=== PATIENT | male | born 1965 | race Caucasian/White ===

== ENCOUNTER 2016-12-24 01:07 | Emergency (ER) | payer SELFPAY ==
[~2016-12-24] VITALS: Ht 175.2 cm; Wt 81.6 kg
--- NOTE | ~2016-12-24 | EKG ---
[place], [place] ELECTROCARDIOGRAM REPORT NAME: MIGDALIA RAHMAN UNIT #: [id number] ROOM: DOCTOR: KUMAR BURNETT MD BIRTHDATE: [birth year] DOS: 12/24/2016 TIME: 0141 hours. IMPRESSION: 1. Sinus rhythm at 94 beats per minute. 2. Incomplete right bundle branch block. 3. An abnormal ECG. 4. No previous tracing is available for comparison. KUMAR BURNETT MD CM:EKGRPT:ELECTROCARDIOGRAM REPORT [id number] KUMAR BURNETT MD
[~2016-12-24 01:07] MED LIST: DARVOCET N 1001 TAB PO; DAYPRO600 M1 PO; DILANTIN100 MG PO; MEDROL DOSEPAK4 MG PO; MOTRIN800 MG PO; NKHM; ROBAXIN750 MG PO; TRAMADOL HCL50 MG PO; VICODIN 5/500 505 MG PO
[2016-12-24 01:51] LABS: BASO # 0.1 10*3/uL (0.0-0.1); BASO % 0.5 % (0.0-1.0); EOS # 0.8 10*3/uL (0.0-0.4); EOS % 5.8 % (1.0-4.0); HEMATOCRIT 31.6 % (42.0-52.0); HEMOGLOBIN 9.9 g/dl (14.0-18.0); LYMPH # 1.7 10*3/uL (1.3-4.4); LYMPH % 11.8 % (27.0-41.0); MEAN CELL VOLUME 82.7 fl (80.0-94.0); MEAN CORPUSCULAR HGB 25.9 pg (27.0-31.0); MEAN CORPUSCULAR HGB CONC 31.3 g/dl (33.0-37.0); MEAN PLATELET VOLUME 10.1 fl (9.6-12.3); MONO # 1.1 10*3/uL (0.1-1.0); MONO % 7.5 % (3.0-9.0); NEUT # 10.3 10*3/uL (2.3-7.9); PLATELET COUNT AUTOMATED 466 10*3/uL (130-400); RED BLOOD COUNT 3.82 10*6/uL (4.50-5.90); RED CELL DISTRI WIDTH 16.1 % (0-14.5)
[2016-12-24 02:06] LABS: BILIRUBIN NEGATIVE (NEGATIVE); BLOOD NEGATIVE (NEGATIVE); CLARITY CLEAR (CLEAR); COLOR YELLOW (YELLOW); GLUCOSE NEGATIVE (NEGATIVE); KETONE NEGATIVE (NEGATIVE); LEUKO ESTERASE NEGATIVE (NEGATIVE); NITRITE NEGATIVE (NEGATIVE); SPECIFIC GRAVITY <= 1.005 (1.005-1.030); UROBILINOGEN 0.2 E.U./dl (0.2-1.0)
[2016-12-24 02:10] LABS: ALBUMIN 3.3 gm/dl (3.1-4.5); ALKALINE PHOSPHATASE 53 U/L (45-117); BUN 19 mg/dl (7-24); CHLORIDE 103 mmol/L (98-107); CREATININE 1.24 mg/dL (0.70-1.30); POTASSIUM 4.2 mmol/L (3.5-5.1); SGOT/AST 34 IU/L (3-35); SGPT/ALT 50 U/L (12-78); SODIUM 137 mmol/L (136-145); TOTAL PROTEIN 6.8 gm/dL (6.4-8.2)
[2016-12-24 02:17] LABS: URINE AMPHETAMINES < 1000 (1000ng/ml); URINE BARBITURATES < 200 (200ng/ml); URINE BENZODIAZEPINES < 200 (200ng/ml); URINE CANNABINOIDS (THC) < 50 (50ng/ml); URINE COCAINE < 300 (300ng/ml); URINE METHADONE < 300 (300ng/ml); URINE OPIATES < 300 (300ng/ml)
[2016-12-24 02:21] LABS: URINE PHENCYCLIDINE < 25 (25ng/ml)
[2016-12-24 02:40] LABS: WBC 0-2 wbc/hpf (0-5)
[2016-12-24] MEDS ORDERED: PROAIR HFA8.5 GM INH (04:51)
[2016-12-24] MEDS ORDERED: ATIVAN1 MG PO (04:51)
[2016-12-24] MEDS ORDERED: ZITHROMAX250 MG PO (04:51)
== END 2016-12-24 06:48 | disposition home or self-care (01) ==
LOC: ED 01:07
PROVIDERS: Emergency Medicine Emergency Medical Services
DX: J18.1 Lobar pneumonia, unspecified organism (principal)

== ENCOUNTER 2017-03-05 18:28 | Emergency (ER) | payer SELFPAY ==
[~2017-03-05] VITALS: Ht 175.2 cm; Wt 81.6 kg
--- NOTE | ~2017-03-05 | EKG ---
[place], [place] ELECTROCARDIOGRAM REPORT NAME: MIGDALIA RAHMAN UNIT #: [id number] ROOM: DOCTOR: KUMAR BURNETT MD BIRTHDATE: [birth year] DOS: 03/05/2017 TIME: 1917 hours. Normal sinus rhythm at 96 beats per minute. A complete right bundle-branch block with an abnormal ECG. No previous tracing is available for comparison. KUMAR BURNETT MD CM:EKGRPT:ELECTROCARDIOGRAM REPORT [id number] KUMAR BURNETT MD
[~2017-03-05 18:28] MED LIST changes: +ATIVAN1 MG PO; +PROAIR HFA8.5 GM INH; +ZITHROMAX250 MG PO
[2017-03-05 19:15] LABS: BASO % 0.3 % (0.0-1.0); EOS % 0.2 % (1.0-4.0); HEMATOCRIT 24.1 % (42.0-52.0); HEMOGLOBIN 7.4 g/dl (14.0-18.0); LYMPH # 1.2 10*3/uL (1.3-4.4); LYMPH % 7.9 % (27.0-41.0); MEAN CELL VOLUME 73.3 fl (80.0-94.0); MEAN CORPUSCULAR HGB 22.5 pg (27.0-31.0); MEAN CORPUSCULAR HGB CONC 30.7 g/dl (33.0-37.0); MEAN PLATELET VOLUME 9.9 fl (9.6-12.3); MONO # 1.4 10*3/uL (0.1-1.0); MONO % 9.7 % (3.0-9.0); NEUT # 11.9 10*3/uL (2.3-7.9); NEUT % 81.2 % (47.0-73.0); PLATELET COUNT AUTOMATED 443 10*3/uL (130-400); RED BLOOD COUNT 3.29 10*6/uL (4.50-5.90); RED CELL DISTRI WIDTH 16.7 % (0-14.5); WHITE BLOOD COUNT 14.7 10*3/uL (4.8-10.8)
[2017-03-05 19:26] LABS: ACT PARTIAL THROMBO TIME 31.7 SECONDS (20.8-31.5); INTERNATIONAL NORM RATIO 1.2 (2.0-3.5)
[2017-03-05 19:34] LABS: ALBUMIN 3.5 gm/dl (3.1-4.5); CREATININE 1.54 mg/dL (0.70-1.30); TOTAL PROTEIN 6.7 gm/dL (6.4-8.2)
[2017-03-05 19:35] LABS: TROPONIN I 0.04 ng/ml (<0.045)
[2017-03-05] MEDS ORDERED: AMOXICILLIN500 M3 PO (21:04)
[2017-03-05] MEDS ORDERED: PROAIR HFA8.5 GM INH (21:05)
== END 2017-03-05 22:43 | disposition home or self-care (01) ==
LOC: ED 18:28
PROVIDERS: Emergency Medicine
DX: J06.9 Acute upper respiratory infection, unspecified (principal)

== ENCOUNTER → 2017-03-11 | Outpatient (CLI) | payer SELFPAY ==
[~2017-03-11] MED LIST changes: +AMOXICILLIN500 M3 PO
[2017-03-11 10:29] LABS: BASO # 0.1 10*3/uL (0.0-0.1); BASO % 0.8 % (0.0-1.0); EOS # 0.7 10*3/uL (0.0-0.4); EOS % 8.9 % (1.0-4.0); HEMATOCRIT 28.8 % (42.0-52.0); HEMOGLOBIN 8.5 g/dl (14.0-18.0); LYMPH # 1.5 10*3/uL (1.3-4.4); LYMPH % 18.8 % (27.0-41.0); MEAN CELL VOLUME 74.6 fl (80.0-94.0); MEAN CORPUSCULAR HGB CONC 29.5 g/dl (33.0-37.0); MEAN PLATELET VOLUME 9.4 fl (9.6-12.3); MONO # 0.5 10*3/uL (0.1-1.0); MONO % 6.5 % (3.0-9.0); NEUT % 63.2 % (47.0-73.0); PLATELET COUNT AUTOMATED 629 10*3/uL (130-400); RED BLOOD COUNT 3.86 10*6/uL (4.50-5.90); RED CELL DISTRI WIDTH 17.2 % (0-14.5)
== END | disposition home or self-care (01) ==
LOC: RESCLI 03:59 → LAB 03:59 → RESCLI 08:20
PROVIDERS: Student in an Organized Health Care Education/Training Program
DX: D50.9 Iron deficiency anemia, unspecified (principal)

== ENCOUNTER → 2017-03-19 | Day surgery (SDC) | payer SELFPAY ==
[~2017-03-19] VITALS: Ht 175.2 cm; Wt 84.8 kg
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
[2017-03-19 07:13] VITALS: BP 137/55
[2017-03-19 08:45] VITALS: BP 98/51
[2017-03-19 08:53] VITALS: BP 99/49
[2017-03-19 09:08] LABS: HEMATOCRIT 27.5 % (42.0-52.0)
[2017-03-19 09:15] VITALS: BP 113/53
== END ==
LOC: SDC 03-18 15:30
PROVIDERS: Internal Medicine
DX: C18.7 Malignant neoplasm of sigmoid colon (principal); K29.50 Unspecified chronic gastritis without bleeding; Z80.9 Family history of malignant neoplasm, unspecified

== ENCOUNTER → 2017-03-24 | Outpatient (CLI) | payer SELFPAY ==
[2017-03-24 16:06] LABS: BASO # 0.1 10*3/uL (0.0-0.1); EOS # 0.3 10*3/uL (0.0-0.4); HEMATOCRIT 28.8 % (42.0-52.0); HEMOGLOBIN 8.3 g/dl (14.0-18.0); LYMPH # 1.3 10*3/uL (1.3-4.4); LYMPH % 15.3 % (27.0-41.0); MEAN CELL VOLUME 73.1 fl (80.0-94.0); MEAN CORPUSCULAR HGB 21.1 pg (27.0-31.0); MEAN CORPUSCULAR HGB CONC 28.8 g/dl (33.0-37.0); MEAN PLATELET VOLUME 9.4 fl (9.6-12.3); MONO # 0.5 10*3/uL (0.1-1.0); MONO % 5.7 % (3.0-9.0); NEUT # 6.1 10*3/uL (2.3-7.9); NEUT % 73.5 % (47.0-73.0); PLATELET COUNT AUTOMATED 638 10*3/uL (130-400); RED BLOOD COUNT 3.94 10*6/uL (4.50-5.90); RED CELL DISTRI WIDTH 16.7 % (0-14.5); WHITE BLOOD COUNT 8.3 10*3/uL (4.8-10.8)
[2017-03-24 16:31] LABS: ALBUMIN 3.2 gm/dl (3.1-4.5); ALKALINE PHOSPHATASE 52 U/L (45-117); BUN 11 mg/dl (7-24); CHLORIDE 103 mmol/L (98-107); CREATININE 1.23 mg/dL (0.70-1.30); POTASSIUM 4.3 mmol/L (3.5-5.1); SGOT/AST 22 IU/L (3-35); SGPT/ALT 42 U/L (12-78); SODIUM 137 mmol/L (136-145); TOTAL PROTEIN 6.6 gm/dL (6.4-8.2)
[2017-03-24 16:33] LABS: CEA 2.3 ng/mL
== END | disposition home or self-care (01) ==
LOC: RESCLI 02:34
PROVIDERS: Emergency Medicine
DX: C18.9 Malignant neoplasm of colon, unspecified (principal); D47.3 Essential (hemorrhagic) thrombocythemia; D50.9 Iron deficiency anemia, unspecified; F41.1 Generalized anxiety disorder; K21.9 Gastro-esophageal reflux disease without esophagitis

== ENCOUNTER → 2017-03-26 | Outpatient (CLI) | payer SELFPAY | END | disposition home or self-care (01) | LOC: CT 00:21 | DX: C18.9 Malignant neoplasm of colon, unspecified (principal); D64.9 Anemia, unspecified ==

== ENCOUNTER → 2017-03-31 | Outpatient (CLI) | payer SELFPAY | END | disposition home or self-care (01) | LOC: RESCLI 01:50 | DX: C18.9 Malignant neoplasm of colon, unspecified (principal); D50.9 Iron deficiency anemia, unspecified; F41.1 Generalized anxiety disorder ==

== ENCOUNTER → 2017-04-07 | Day surgery (SDC) | payer SELFPAY ==
[~2017-04-07] VITALS: Ht 175.2 cm; Wt 84.4 kg
[~2017-04-07] MED LIST changes: +LORAZEPAM0.5 MG PO
[2017-04-07 10:00] VITALS: BP 137/64
[2017-04-07 12:23] VITALS: BP 93/49
[2017-04-07 12:38] VITALS: BP 106/59
[2017-04-07 12:49] VITALS: BP 114/62
== END ==
LOC: SDC 03:55
DX: C18.7 Malignant neoplasm of sigmoid colon (principal); K21.9 Gastro-esophageal reflux disease without esophagitis; Z79.899 Other long term (current) drug therapy; D50.9 Iron deficiency anemia, unspecified; F41.1 Generalized anxiety disorder; Z80.0 Family history of malignant neoplasm of digestive organs; Z98.890 Other specified postprocedural states

== ENCOUNTER 2017-04-08 04:32 | Emergency (ER) | payer SELFPAY ==
[~2017-04-08] VITALS: Ht 175.2 cm; Wt 83.9 kg
--- NOTE | ~2017-04-08 | EKG ---
[place], [place] ELECTROCARDIOGRAM REPORT NAME: MIGDALIA RAHMAN UNIT #: [id number] ROOM: DOCTOR: KUMAR BURNETT MD BIRTHDATE: [birth year] DOS: 04/08/2017 TIME: 0502 hours. Normal sinus rhythm at 85 beats per minute. Incomplete right bundle branch block. An abnormal ECG. No previous tracing is available for comparison. KUMAR BURNETT MD CM:EKGRPT:ELECTROCARDIOGRAM REPORT [id number] KUMAR BURNETT MD
[~2017-04-08 04:32] MED LIST changes: -LORAZEPAM0.5 MG PO
[2017-04-08] MEDS ORDERED: LORAZEPAM0.5 MG PO (04:42)
[2017-04-08 05:09] LABS: BASO % 0.2 % (0.0-1.0); EOS # 0.6 10*3/uL (0.0-0.4); EOS % 5.7 % (1.0-4.0); HEMATOCRIT 25.9 % (42.0-52.0); HEMOGLOBIN 7.2 g/dl (14.0-18.0); LYMPH # 1.8 10*3/uL (1.3-4.4); LYMPH % 17.5 % (27.0-41.0); MEAN CELL VOLUME 71.5 fl (80.0-94.0); MEAN CORPUSCULAR HGB 19.9 pg (27.0-31.0); MEAN CORPUSCULAR HGB CONC 27.8 g/dl (33.0-37.0); MEAN PLATELET VOLUME 9.5 fl (9.6-12.3); MONO # 0.6 10*3/uL (0.1-1.0); NEUT # 7.4 10*3/uL (2.3-7.9); NEUT % 70.1 % (47.0-73.0); PLATELET COUNT AUTOMATED 490 10*3/uL (130-400); RED BLOOD COUNT 3.62 10*6/uL (4.50-5.90); RED CELL DISTRI WIDTH 17.2 % (0-14.5); WHITE BLOOD COUNT 10.5 10*3/uL (4.8-10.8)
[2017-04-08 05:19] LABS: ACT PARTIAL THROMBO TIME 22.6 SECONDS (20.8-31.5); INTERNATIONAL NORM RATIO 1.1 (2.0-3.5)
[2017-04-08 05:25] LABS: ALKALINE PHOSPHATASE 57 U/L (45-117); BUN 12 mg/dl (7-24); CHLORIDE 105 mmol/L (98-107); CREATININE 1.11 mg/dL (0.70-1.30); POTASSIUM 4.4 mmol/L (3.5-5.1); SGOT/AST 13 IU/L (3-35); SGPT/ALT 23 U/L (12-78); SODIUM 138 mmol/L (136-145); TOTAL PROTEIN 5.8 gm/dL (6.4-8.2)
[2017-04-08 05:26] LABS: TROPONIN I 0.018 ng/ml (<0.045)
== END 2017-04-08 06:26 | disposition left against medical advice (07) ==
LOC: ED 04:32
PROVIDERS: Student in an Organized Health Care Education/Training Program
DX: D64.9 Anemia, unspecified (principal); R06.02 Shortness of breath; F41.9 Anxiety disorder, unspecified; Z79.899 Other long term (current) drug therapy

== ENCOUNTER → 2017-04-08 | Outpatient (CLI) | payer SELFPAY | END | disposition home or self-care (01) | LOC: RESCLI 02:24 | DX: F41.1 Generalized anxiety disorder (principal); D50.9 Iron deficiency anemia, unspecified; C18.9 Malignant neoplasm of colon, unspecified ==

== ENCOUNTER 2017-04-14 02:15 | Inpatient (IN) | payer OTHER ==
[2017-04-11 11:15] LABS: BASO # 0.1 10*3/uL (0.0-0.1); BASO % 0.5 % (0.0-1.0); EOS # 0.3 10*3/uL (0.0-0.4); EOS % 2.5 % (1.0-4.0); HEMATOCRIT 27.4 % (42.0-52.0); LYMPH % 8.5 % (27.0-41.0); MEAN CELL VOLUME 70.3 fl (80.0-94.0); MEAN CORPUSCULAR HGB 20.5 pg (27.0-31.0); MEAN CORPUSCULAR HGB CONC 29.2 g/dl (33.0-37.0); MEAN PLATELET VOLUME 10.1 fl (9.6-12.3); MONO # 0.4 10*3/uL (0.1-1.0); MONO % 3.7 % (3.0-9.0); NEUT # 9.7 10*3/uL (2.3-7.9); NEUT % 84.3 % (47.0-73.0); PLATELET COUNT AUTOMATED 614 10*3/uL (130-400); RED CELL DISTRI WIDTH 18.1 % (0-14.5); WHITE BLOOD COUNT 11.5 10*3/uL (4.8-10.8)
[2017-04-11 11:41] LABS: BUN 10 mg/dl (7-24); CHLORIDE 104 mmol/L (98-107); CREATININE 1.04 mg/dL (0.70-1.30); POTASSIUM 4.3 mmol/L (3.5-5.1); SODIUM 138 mmol/L (136-145)
[2017-04-14] VITALS (8 sets, daily range): BP systolic 119–160; BP diastolic 61–83
[~2017-04-14] VITALS: Ht 175.2 cm; Wt 86.3 kg
[~2017-04-14 02:15] MED LIST changes: +LORAZEPAM0.5 MG PO
[2017-04-15] VITALS (15 sets, daily range): BP systolic 105–148; BP diastolic 43–98
[2017-04-15 07:15] LABS: HEMATOCRIT 20.1 % (42.0-52.0); MEAN CORPUSCULAR HGB 19.9 pg (27.0-31.0); MEAN CORPUSCULAR HGB CONC 28.4 g/dl (33.0-37.0); MEAN PLATELET VOLUME 10.3 fl (9.6-12.3); PLATELET COUNT AUTOMATED 535 10*3/uL (130-400); RED BLOOD COUNT 2.87 10*6/uL (4.50-5.90); WHITE BLOOD COUNT 12.6 10*3/uL (4.8-10.8)
[2017-04-15 07:33] LABS: TOTAL CELLS COUNTED 100 #CELLS
[2017-04-15 07:34] LABS: MICROCYTOSIS MODERATE; OVALOCYTES MODERATE
[2017-04-15 07:35] LABS: PLATELET SUFFICIENCY HIGH (NORMAL); POLYCHROMASIA SLIGHT; SCHISTOCYTES FEW
[2017-04-15 07:40] LABS: ALBUMIN 2.9 gm/dl (3.1-4.5); ALKALINE PHOSPHATASE 42 U/L (45-117); BUN 14 mg/dl (7-24); CHLORIDE 106 mmol/L (98-107); CREATININE 1.46 mg/dL (0.70-1.30); SGOT/AST 17 IU/L (3-35); SGPT/ALT 25 U/L (12-78); SODIUM 138 mmol/L (136-145); TOTAL PROTEIN 5.6 gm/dL (6.4-8.2)
[2017-04-15 07:43] LABS: HEMOGLOBIN 5.7 g/dl (14.0-18.0)
[2017-04-15 14:56] LABS: HEMATOCRIT 23.5 % (42.0-52.0); HEMOGLOBIN 7.1 g/dl (14.0-18.0)
[2017-04-16 01:05] LABS: HEMATOCRIT 26.7 % (42.0-52.0)
[2017-04-16 06:19] LABS: BASO % 0.2 % (0.0-1.0); EOS % 0.2 % (1.0-4.0); HEMATOCRIT 26.4 % (42.0-52.0); HEMOGLOBIN 8.1 g/dl (14.0-18.0); LYMPH # 1.6 10*3/uL (1.3-4.4); LYMPH % 13.1 % (27.0-41.0); MEAN CORPUSCULAR HGB 22.9 pg (27.0-31.0); MEAN CORPUSCULAR HGB CONC 30.7 g/dl (33.0-37.0); MEAN PLATELET VOLUME 10.2 fl (9.6-12.3); MONO # 1.2 10*3/uL (0.1-1.0); MONO % 10.1 % (3.0-9.0); NEUT # 9.3 10*3/uL (2.3-7.9); NEUT % 75.8 % (47.0-73.0); PLATELET COUNT AUTOMATED 390 10*3/uL (130-400); RED BLOOD COUNT 3.54 10*6/uL (4.50-5.90); RED CELL DISTRI WIDTH 20.3 % (0-14.5); WHITE BLOOD COUNT 12.3 10*3/uL (4.8-10.8)
[2017-04-16 06:22] LABS: MEAN CELL VOLUME 74.6 fl (80.0-94.0)
[2017-04-16 06:52] LABS: ALBUMIN 2.7 gm/dl (3.1-4.5); ALKALINE PHOSPHATASE 40 U/L (45-117); BUN 13 mg/dl (7-24); CHLORIDE 107 mmol/L (98-107); CREATININE 1.04 mg/dL (0.70-1.30); POTASSIUM 4.8 mmol/L (3.5-5.1); SGOT/AST 30 IU/L (3-35); SGPT/ALT 24 U/L (12-78); SODIUM 139 mmol/L (136-145); TOTAL PROTEIN 5.4 gm/dL (6.4-8.2)
[2017-04-16 08:00] VITALS: BP 122/70
[2017-04-16 12:00] VITALS: BP 133/68
[2017-04-16 16:00] VITALS: BP 148/76
[2017-04-16 20:00] VITALS: BP 137/73
[2017-04-17] VITALS: BP 161/84
[2017-04-17 04:10] LABS: HEMATOCRIT 27.5 % (42.0-52.0); HEMOGLOBIN 8.3 g/dl (14.0-18.0); MEAN CORPUSCULAR HGB 22.9 pg (27.0-31.0); MEAN CORPUSCULAR HGB CONC 30.2 g/dl (33.0-37.0); MEAN PLATELET VOLUME 10.6 fl (9.6-12.3); PLATELET COUNT AUTOMATED 465 10*3/uL (130-400); RED BLOOD COUNT 3.62 10*6/uL (4.50-5.90); RED CELL DISTRI WIDTH 21.1 % (0-14.5); WHITE BLOOD COUNT 17.1 10*3/uL (4.8-10.8)
[2017-04-17 04:33] LABS: PLATELET SUFFICIENCY HIGH (NORMAL); TOTAL CELLS COUNTED 100 #CELLS
[2017-04-17 04:34] LABS: BUN 12 mg/dl (7-24); CHLORIDE 104 mmol/L (98-107); CREATININE 0.89 mg/dL (0.70-1.30); MICROCYTOSIS SLIGHT; OVALOCYTES FEW; POTASSIUM 4.5 mmol/L (3.5-5.1); SODIUM 137 mmol/L (136-145); TARGET CELLS FEW
[2017-04-17 08:00] VITALS: BP 137/63
[2017-04-17 12:00] VITALS: BP 134/60
[2017-04-17 16:00] VITALS: BP 144/67
[2017-04-17 20:00] VITALS: BP 120/64
[2017-04-18] VITALS: BP 118/62; BP 127/64
[2017-04-18 07:04] LABS: BASO % 0.4 % (0.0-1.0); EOS # 0.5 10*3/uL (0.0-0.4); EOS % 4.3 % (1.0-4.0); HEMATOCRIT 25.2 % (42.0-52.0); HEMOGLOBIN 7.6 g/dl (14.0-18.0); LYMPH # 0.8 10*3/uL (1.3-4.4); LYMPH % 7.4 % (27.0-41.0); MEAN CELL VOLUME 78.5 fl (80.0-94.0); MEAN CORPUSCULAR HGB 23.7 pg (27.0-31.0); MEAN CORPUSCULAR HGB CONC 30.2 g/dl (33.0-37.0); MEAN PLATELET VOLUME 10.1 fl (9.6-12.3); MONO % 9.2 % (3.0-9.0); NEUT # 8.5 10*3/uL (2.3-7.9); NEUT % 77.9 % (47.0-73.0); PLATELET COUNT AUTOMATED 386 10*3/uL (130-400); RED BLOOD COUNT 3.21 10*6/uL (4.50-5.90); RED CELL DISTRI WIDTH 22.4 % (0-14.5); WHITE BLOOD COUNT 10.9 10*3/uL (4.8-10.8)
[2017-04-18 07:35] LABS: CHLORIDE 106 mmol/L (98-107); POTASSIUM 4.4 mmol/L (3.5-5.1); SODIUM 139 mmol/L (136-145)
[2017-04-18 07:45] LABS: ALBUMIN 2.6 gm/dl (3.1-4.5); ALKALINE PHOSPHATASE 45 U/L (45-117); BUN 11 mg/dl (7-24); CREATININE 1.02 mg/dL (0.70-1.30); SGOT/AST 50 IU/L (3-35); SGPT/ALT 43 U/L (12-78); TOTAL PROTEIN 5.2 gm/dL (6.4-8.2)
[2017-04-18 08:00] VITALS: BP 135/59
[2017-04-18 12:00] VITALS: BP 125/60
[2017-04-18 16:00] VITALS: BP 141/70
[2017-04-18 20:00] VITALS: BP 136/67
[2017-04-19] VITALS: BP 127/64
[2017-04-19 06:22] LABS: BASO # 0.1 10*3/uL (0.0-0.1); BASO % 0.4 % (0.0-1.0); EOS % 8.8 % (1.0-4.0); HEMATOCRIT 27.8 % (42.0-52.0); HEMOGLOBIN 8.2 g/dl (14.0-18.0); LYMPH # 0.9 10*3/uL (1.3-4.4); LYMPH % 7.8 % (27.0-41.0); MEAN CORPUSCULAR HGB 23.3 pg (27.0-31.0); MEAN CORPUSCULAR HGB CONC 29.5 g/dl (33.0-37.0); MEAN PLATELET VOLUME 10.6 fl (9.6-12.3); MONO # 1.1 10*3/uL (0.1-1.0); MONO % 9.4 % (3.0-9.0); NEUT # 8.6 10*3/uL (2.3-7.9); NEUT % 72.9 % (47.0-73.0); PLATELET COUNT AUTOMATED 458 10*3/uL (130-400); RED BLOOD COUNT 3.52 10*6/uL (4.50-5.90); RED CELL DISTRI WIDTH 23.1 % (0-14.5); WHITE BLOOD COUNT 11.9 10*3/uL (4.8-10.8)
[2017-04-19 06:50] LABS: ALBUMIN 2.7 gm/dl (3.1-4.5); BUN 8 mg/dl (7-24); CHLORIDE 103 mmol/L (98-107); CREATININE 0.94 mg/dL (0.70-1.30); POTASSIUM 4.3 mmol/L (3.5-5.1); SGOT/AST 38 IU/L (3-35); SGPT/ALT 45 U/L (12-78); SODIUM 137 mmol/L (136-145)
[2017-04-19 06:52] LABS: ALKALINE PHOSPHATASE 45 U/L (45-117); PHOSPHOROUS 2.7 mg/dL (2.5-4.9); TOTAL PROTEIN 5.7 gm/dL (6.4-8.2)
[2017-04-19 08:00] VITALS: BP 137/68
[2017-04-19 12:00] VITALS: BP 136/68
[2017-04-19 16:00] VITALS: BP 148/72
[2017-04-19 20:00] VITALS: BP 154/81
[2017-04-20] VITALS: BP 145/67
[2017-04-20 06:03] LABS: BASO % 0.2 % (0.0-1.0); EOS # 1.2 10*3/uL (0.0-0.4); EOS % 10.8 % (1.0-4.0); HEMATOCRIT 26.9 % (42.0-52.0); HEMOGLOBIN 8.2 g/dl (14.0-18.0); LYMPH # 1.2 10*3/uL (1.3-4.4); LYMPH % 10.3 % (27.0-41.0); MEAN CELL VOLUME 78.2 fl (80.0-94.0); MEAN CORPUSCULAR HGB 23.8 pg (27.0-31.0); MEAN CORPUSCULAR HGB CONC 30.5 g/dl (33.0-37.0); MEAN PLATELET VOLUME 10.5 fl (9.6-12.3); MONO # 1.1 10*3/uL (0.1-1.0); MONO % 9.5 % (3.0-9.0); NEUT # 7.9 10*3/uL (2.3-7.9); NEUT % 68.3 % (47.0-73.0); PLATELET COUNT AUTOMATED 439 10*3/uL (130-400); RED BLOOD COUNT 3.44 10*6/uL (4.50-5.90); RED CELL DISTRI WIDTH 22.9 % (0-14.5); WHITE BLOOD COUNT 11.5 10*3/uL (4.8-10.8)
[2017-04-20 06:29] LABS: BUN 7 mg/dl (7-24); CHLORIDE 104 mmol/L (98-107); CREATININE 0.86 mg/dL (0.70-1.30); POTASSIUM 3.9 mmol/L (3.5-5.1); SODIUM 136 mmol/L (136-145)
[2017-04-20 08:00] VITALS: BP 146/75
[2017-04-20 12:00] VITALS: BP 126/74
[2017-04-20 16:00] VITALS: BP 137/70
[2017-04-20 20:00] VITALS: BP 148/70
[2017-04-21] VITALS: BP 118/61
[2017-04-21 06:49] LABS: BASO % 0.4 % (0.0-1.0); EOS # 1.1 10*3/uL (0.0-0.4); EOS % 10.6 % (1.0-4.0); HEMATOCRIT 29.1 % (42.0-52.0); HEMOGLOBIN 8.9 g/dl (14.0-18.0); LYMPH % 9.5 % (27.0-41.0); MEAN CELL VOLUME 77.8 fl (80.0-94.0); MEAN CORPUSCULAR HGB 23.8 pg (27.0-31.0); MEAN CORPUSCULAR HGB CONC 30.6 g/dl (33.0-37.0); MONO # 0.7 10*3/uL (0.1-1.0); MONO % 6.6 % (3.0-9.0); NEUT # 7.8 10*3/uL (2.3-7.9); NEUT % 72.2 % (47.0-73.0); PLATELET COUNT AUTOMATED 486 10*3/uL (130-400); RED BLOOD COUNT 3.74 10*6/uL (4.50-5.90); WHITE BLOOD COUNT 10.8 10*3/uL (4.8-10.8)
[2017-04-21 07:02] LABS: BUN 5 mg/dl (7-24); CHLORIDE 105 mmol/L (98-107); POTASSIUM 4.2 mmol/L (3.5-5.1); SODIUM 139 mmol/L (136-145)
[2017-04-21 08:00] VITALS: BP 132/75
[2017-04-21 12:00] VITALS: BP 134/67
[2017-04-21 16:00] VITALS: BP 138/77
[2017-04-21] MEDS ORDERED: FEROSUL325 MG PO (17:04)
[2017-04-21] MEDS ORDERED: MOTRIN 600 MG E4 TAB PO (17:04)
[2017-04-21] MEDS ORDERED: DOK COLACE100 MG PO (17:04)
[2017-04-21] MEDS ORDERED: PERCOCET 7.5 MG-325 PO (17:04)
[2017-04-21] MEDS ORDERED: CYCLOBENZAPRINE10 MG PO (17:04)
[2017-04-21] MEDS ORDERED: DOXYCYCLINE MO100 M1 PO (17:04)
== END 2017-04-21 19:45 | disposition home or self-care (01) | DRG 329 ==
LOC: SDC 02:15 → 4E 08:37 → SDC 09:00 → 4E 04-21 19:45
PROVIDERS: Family Medicine; Internal Medicine; Internal Medicine Hospice and Palliative Medicine
PROC: 30233N1 Transfusion of Nonautologous Red Blood Cells into Peripheral Vein, Percutaneous Approach (ICD-10-PCS; principal; 2017-04-15)
PROC: 0DTN4ZZ Resection of Sigmoid Colon, Percutaneous Endoscopic Approach (ICD-10-PCS; 2017-04-16)
DX: C18.7 Malignant neoplasm of sigmoid colon (principal); R65.11 Systemic inflammatory response syndrome (SIRS) of non-infectious origin with acute organ dysfunction; N17.0 Acute kidney failure with tubular necrosis; E44.0 Moderate protein-calorie malnutrition; D47.3 Essential (hemorrhagic) thrombocythemia; E83.51 Hypocalcemia; Z90.49 Acquired absence of other specified parts of digestive tract; R73.9 Hyperglycemia, unspecified; F41.9 Anxiety disorder, unspecified; D50.0 Iron deficiency anemia secondary to blood loss (chronic); Z68.28 Body mass index [BMI] 28.0-28.9, adult; Z86.73 Personal history of transient ischemic attack (TIA), and cerebral infarction without residual deficits; Z83.3 Family history of diabetes mellitus; Z80.0 Family history of malignant neoplasm of digestive organs

== ENCOUNTER → 2017-05-01 | Outpatient (CLI) | payer OTHER ==
[~2017-05-01] MED LIST changes: +CYCLOBENZAPRINE10 MG PO; +DOK COLACE100 MG PO; +DOXYCYCLINE MO100 M1 PO; +FEROSUL325 MG PO; +MOTRIN 600 MG E4 TAB PO; +PERCOCET 7.5 MG-325 PO
[2017-05-01 14:02] LABS: BASO # 0.1 10*3/uL (0.0-0.1); BASO % 1.3 % (0.0-1.0); EOS # 0.2 10*3/uL (0.0-0.4); EOS % 2.5 % (1.0-4.0); HEMATOCRIT 33.6 % (42.0-52.0); HEMOGLOBIN 10.3 g/dl (14.0-18.0); LYMPH % 14.8 % (27.0-41.0); MEAN CELL VOLUME 79.2 fl (80.0-94.0); MEAN CORPUSCULAR HGB 24.3 pg (27.0-31.0); MEAN CORPUSCULAR HGB CONC 30.7 g/dl (33.0-37.0); MEAN PLATELET VOLUME 9.3 fl (9.6-12.3); MONO # 0.3 10*3/uL (0.1-1.0); MONO % 4.9 % (3.0-9.0); NEUT # 5.1 10*3/uL (2.3-7.9); NEUT % 75.9 % (47.0-73.0); PLATELET COUNT AUTOMATED 528 10*3/uL (130-400); RED BLOOD COUNT 4.24 10*6/uL (4.50-5.90); RED CELL DISTRI WIDTH 21.6 % (0-14.5); WHITE BLOOD COUNT 6.7 10*3/uL (4.8-10.8)
[2017-05-01 14:21] LABS: ALBUMIN 3.7 gm/dl (3.1-4.5); ALKALINE PHOSPHATASE 82 U/L (45-117); BUN 15 mg/dl (7-24); CHLORIDE 106 mmol/L (98-107); CREATININE 0.93 mg/dL (0.70-1.30); POTASSIUM 4.6 mmol/L (3.5-5.1); SGOT/AST 16 IU/L (3-35); SGPT/ALT 39 U/L (12-78); SODIUM 139 mmol/L (136-145); TOTAL PROTEIN 7.1 gm/dL (6.4-8.2)
== END | disposition home or self-care (01) ==
LOC: RESCLI 04-28 04:15
PROVIDERS: Hospitalist
DX: K21.9 Gastro-esophageal reflux disease without esophagitis (principal); F41.9 Anxiety disorder, unspecified

== ENCOUNTER → 2017-05-20 | Outpatient (CLI) | payer OTHER | END | disposition home or self-care (01) | LOC: RESCLI 04:03 | DX: C18.9 Malignant neoplasm of colon, unspecified (principal); D50.9 Iron deficiency anemia, unspecified; F41.1 Generalized anxiety disorder; E66.3 Overweight ==

== ENCOUNTER → 2018-03-06 | Outpatient (CLI) | payer BC ==
[2018-03-06 12:30] LABS: CREATININE 0.96 mg/dL (0.70-1.30)
== END | disposition home or self-care (01) ==
LOC: RESCLI 02:56 → LAB 02:56 → RESCLI 17:11
PROVIDERS: Radiology Diagnostic Radiology
DX: D50.0 Iron deficiency anemia secondary to blood loss (chronic) (principal)

== ENCOUNTER → 2018-10-07 | Outpatient (CLI) | payer BC ==
[2018-10-07 16:48] LABS: BILIRUBIN NEGATIVE (NEGATIVE); BLOOD NEGATIVE (NEGATIVE); CLARITY CLEAR (CLEAR); COLOR YELLOW (YELLOW); GLUCOSE NEGATIVE (NEGATIVE); KETONE NEGATIVE (NEGATIVE); LEUKO ESTERASE NEGATIVE (NEGATIVE); NITRITE NEGATIVE (NEGATIVE); PH 6.5 (5.0-9.0); SPECIFIC GRAVITY 1.015 (1.005-1.030); UROBILINOGEN 0.2 E.U./dl (0.2-1.0)
[2018-10-07 16:56] LABS: BACTERIA 1+; EPITHELIAL CELLS 0-2; RBC 0-2 rbc/hpf (0-2); URINE AMPHETAMINES < 1000 (1000ng/ml); URINE BARBITURATES < 200 (200ng/ml); URINE BENZODIAZEPINES < 200 (200ng/ml); URINE CANNABINOIDS (THC) < 50 (50ng/ml); URINE COCAINE < 300 (300ng/ml); URINE METHADONE < 300 (300ng/ml); URINE OPIATES < 300 (300ng/ml)
[2018-10-07 16:57] LABS: URINE PHENCYCLIDINE < 25 (25ng/ml)
[2018-10-07 17:05] LABS: BASO # 0.1 10*3/uL (0.0-0.1); BASO % 0.9 % (0.0-1.0); EOS # 0.3 10*3/uL (0.0-0.4); EOS % 2.9 % (1.0-4.0); HEMATOCRIT 46.6 % (42.0-52.0); HEMOGLOBIN 14.4 g/dl (14.0-18.0); LYMPH # 1.8 10*3/uL (1.3-4.4); MEAN CELL VOLUME 89.3 fl (80.0-94.0); MEAN CORPUSCULAR HGB 27.6 pg (27.0-31.0); MEAN CORPUSCULAR HGB CONC 30.9 g/dl (33.0-37.0); MEAN PLATELET VOLUME 10.9 fl (9.6-12.3); MONO # 0.5 10*3/uL (0.1-1.0); MONO % 6.4 % (3.0-9.0); NEUT # 5.8 10*3/uL (2.3-7.9); NEUT % 68.3 % (47.0-73.0); PLATELET COUNT AUTOMATED 192 10*3/uL (130-400); RED BLOOD COUNT 5.22 10*6/uL (4.50-5.90); RED CELL DISTRI WIDTH 13.5 % (0-14.5); WHITE BLOOD COUNT 8.5 10*3/uL (4.8-10.8)
[2018-10-07 17:10] LABS: ALBUMIN 3.7 gm/dl (3.1-4.5); ALKALINE PHOSPHATASE 110 U/L (45-117); BUN 12 mg/dl (7-24); CHLORIDE 102 mmol/L (98-107); CREATININE 1.18 mg/dL (0.70-1.30); POTASSIUM 4.2 mmol/L (3.5-5.1); SGOT/AST 15 IU/L (3-35); SGPT/ALT 19 U/L (12-78); SODIUM 136 mmol/L (136-145); TOTAL PROTEIN 6.8 gm/dL (6.4-8.2)
[2018-10-07 17:16] LABS: VITAMIN D, 25-HYDROXY 23.1 ng/mL (30-100)
== END | disposition home or self-care (01) ==
LOC: RESCLI 01:08
PROVIDERS: Internal Medicine
DX: F41.1 Generalized anxiety disorder (principal); R41.3 Other amnesia; C18.7 Malignant neoplasm of sigmoid colon; K21.9 Gastro-esophageal reflux disease without esophagitis; Z79.899 Other long term (current) drug therapy; Z88.8 Allergy status to other drugs, medicaments and biological substances

== ENCOUNTER 2019-01-20 17:31 | Emergency (ER) | payer BC ==
[~2019-01-20] VITALS: Ht 172.7 cm; Wt 81.6 kg
== END 2019-01-20 20:12 | disposition left against medical advice (07) ==
LOC: ED 17:31
DX: H57.12 Ocular pain, left eye (principal); H57.89 Other specified disorders of eye and adnexa; Z79.899 Other long term (current) drug therapy

== ENCOUNTER → 2019-03-04 | Day surgery (SDC) | payer BC ==
[~2019-03-04] VITALS: Ht 175.2 cm; Wt 83.9 kg
[~2019-03-04] MED LIST changes: +ADDERALL 10 MG10 MG PO; +LEXAPRO10 MG PO
[2019-03-04 08:15] VITALS: BP 121/71
[2019-03-04 09:27] VITALS: BP 83/39
[2019-03-04 09:42] VITALS: BP 112/56
== END | disposition home or self-care (01) ==
LOC: SDC 03-01 08:00
DX: K62.5 Hemorrhage of anus and rectum (principal); K64.8 Other hemorrhoids; F41.9 Anxiety disorder, unspecified; Z85.038 Personal history of other malignant neoplasm of large intestine; Z98.890 Other specified postprocedural states; Z79.899 Other long term (current) drug therapy; Z83.3 Family history of diabetes mellitus

== ENCOUNTER → 2019-11-05 | Outpatient (CLI) | payer SELFPAY | END | disposition home or self-care (01) | LOC: RESCLI 03:00 | PROVIDERS: ATTEND Family Medicine | DX: R68.82 Decreased libido (principal); E55.9 Vitamin D deficiency, unspecified; F90.9 Attention-deficit hyperactivity disorder, unspecified type; F51.04 Psychophysiologic insomnia; K21.9 Gastro-esophageal reflux disease without esophagitis; Z79.899 Other long term (current) drug therapy; Z98.890 Other specified postprocedural states ==

== ENCOUNTER → 2019-11-12 | Outpatient (CLI) | payer SELFPAY ==
[2019-11-12 08:48] LABS: BASO % 0.6 % (0.0-1.0); EOS # 0.3 10*3/uL (0.0-0.4); EOS % 3.9 % (1.0-4.0); HEMATOCRIT 43.1 % (42.0-52.0); LYMPH # 1.9 10*3/uL (1.3-4.4); LYMPH % 26.2 % (27.0-41.0); MEAN CORPUSCULAR HGB 28.7 pg (27.0-31.0); MEAN CORPUSCULAR HGB CONC 32.3 g/dl (33.0-37.0); MEAN PLATELET VOLUME 10.2 fl (9.6-12.3); MONO # 0.6 10*3/uL (0.1-1.0); MONO % 8.2 % (3.0-9.0); NEUT # 4.4 10*3/uL (2.3-7.9); NEUT % 60.7 % (47.0-73.0); PLATELET COUNT AUTOMATED 331 10*3/uL (130-400); RED BLOOD COUNT 4.84 10*6/uL (4.50-5.90); WHITE BLOOD COUNT 7.2 10*3/uL (4.8-10.8)
[2019-11-12 09:12] LABS: ALBUMIN 4.2 gm/dl (3.1-4.5); ALKALINE PHOSPHATASE 124 U/L (45-117); BUN 9 mg/dl (7-24); CHLORIDE 104 mmol/L (98-107); CHOLESTEROL 229 mg/dL (<200); CREATININE 1.15 mg/dL (0.70-1.30); HDL CHOLESTEROL 72 mg/dl (40-60); LDL CHOLESTEROL 146 mg/dL (9-159); POTASSIUM 3.6 mmol/L (3.5-5.1); SGOT/AST 11 IU/L (3-35); SGPT/ALT 28 U/L (12-78); SODIUM 138 mmol/L (136-145); TOTAL PROTEIN 7.7 gm/dL (6.4-8.2); TRIGLYCERIDES 53 mg/dl (<150); VLDL CHOLESTEROL 11 mg/dL (6-40)
[2019-11-12 10:44] LABS: VITAMIN D, 25-HYDROXY 22.5 ng/mL (30-100)
[2019-11-14 18:10] LABS: TESTOSTERONE FREE, (DIRECT) 5.7 pg/mL (7.2-24.0)
== END | disposition home or self-care (01) ==
LOC: LAB 08:15
PROVIDERS: Social Worker Clinical; ATTEND Internal Medicine Nephrology
DX: E55.9 Vitamin D deficiency, unspecified (principal); R68.82 Decreased libido; Z79.899 Other long term (current) drug therapy

== ENCOUNTER → 2019-11-16 | Outpatient (CLI) | payer SELFPAY | END | disposition home or self-care (01) | LOC: RESCLI 00:30 | PROVIDERS: ATTEND Internal Medicine | DX: R05 Cough (principal); R68.82 Decreased libido; E55.9 Vitamin D deficiency, unspecified; F41.1 Generalized anxiety disorder; F51.04 Psychophysiologic insomnia; K21.9 Gastro-esophageal reflux disease without esophagitis; Z79.899 Other long term (current) drug therapy; Z98.890 Other specified postprocedural states ==

== ENCOUNTER → 2019-12-20 | Outpatient (CLI) | payer BC ==
[2019-12-21 19:10] LABS: TESTOSTERONE FREE, (DIRECT) 5.7 pg/mL (7.2-24.0)
== END | disposition home or self-care (01) ==
LOC: LAB 08:38
PROVIDERS: Student in an Organized Health Care Education/Training Program; ATTEND Internal Medicine Nephrology
DX: R05 Cough (principal)

== ENCOUNTER → 2020-01-25 | Outpatient (CLI) | payer BC ==
[2020-01-25 08:44] LABS: ALBUMIN 3.9 gm/dl (3.1-4.5); ALKALINE PHOSPHATASE 90 U/L (45-117); BILIRUBIN, DIRECT < 0.1 mg/dL (0.0-0.2); SGOT/AST 16 IU/L (3-35); SGPT/ALT 37 U/L (12-78); TOTAL PROTEIN 6.9 gm/dL (6.4-8.2)
[2020-01-26 08:08] LABS: FOLLICLE STIMULATING HORMONE 5.2 mIU/mL (1.5-12.4); LUTEINIZING HORMONE 4.1 mIU/mL (1.7-8.6); PROLACTIN 22.4 ng/mL (4.0-15.2)
== END | disposition home or self-care (01) ==
LOC: LAB 07:46
PROVIDERS: ATTEND Urology
DX: N40.1 Benign prostatic hyperplasia with lower urinary tract symptoms (principal); E29.1 Testicular hypofunction

== ENCOUNTER → 2020-04-05 | Outpatient (CLI) | payer BC | END | disposition home or self-care (01) | LOC: LAB 08:57 | PROVIDERS: ATTEND Urology | DX: E29.1 Testicular hypofunction (principal) ==

== ENCOUNTER 2021-03-27 20:02 | Emergency (ER) | payer OTHER ==
[~2021-03-27] VITALS: Ht 172.7 cm
[2021-03-27] MEDS ORDERED: TRINTELLIX10 MG PO (20:47)
[2021-03-27] MEDS ORDERED: TRAZODONE100 MG PO (20:48)
[2021-03-27] MEDS ORDERED: NAPROXEN250 MG PO (22:08)
[2021-03-27] MEDS ORDERED: CIPRO500 MG PO (22:08)
== END 2021-03-27 22:12 | disposition home or self-care (01) ==
LOC: ED 20:02
DX: N45.1 Epididymitis (principal); Z79.899 Other long term (current) drug therapy; Z90.49 Acquired absence of other specified parts of digestive tract; Z98.890 Other specified postprocedural states

== ENCOUNTER 2021-04-25 14:28 | Emergency (ER) | payer OTHER ==
[~2021-04-25 14:28] MED LIST changes: +CIPRO500 MG PO; +NAPROXEN250 MG PO; +TRAZODONE100 MG PO; +TRINTELLIX10 MG PO
[2021-04-25 16:22] LABS: MEAN CELL VOLUME 85.2 fl (80.0-94.0); MEAN CORPUSCULAR HGB 27.1 pg (27.0-31.0); MEAN CORPUSCULAR HGB CONC 31.8 g/dl (33.0-37.0); MEAN PLATELET VOLUME 9.2 fl (9.6-12.3); PLATELET COUNT AUTOMATED 346 10*3/uL (130-400); RED BLOOD COUNT 5.28 10*6/uL (4.50-5.90); RED CELL DISTRI WIDTH 16.8 % (0-14.5); WHITE BLOOD COUNT 13.1 10*3/uL (4.8-10.8)
[2021-04-25 16:24] LABS: MANUAL DIFF REFLEX YES
[2021-04-25 16:33] LABS: ACT PARTIAL THROMBO TIME 28.5 SECONDS (20.0-32.1)
[2021-04-25 16:42] LABS: ALKALINE PHOSPHATASE 86 U/L (45-117); BUN 19 mg/dl (7-24); CHLORIDE 106 mmol/L (98-107); CREATININE 1.03 mg/dL (0.70-1.30); LIPASE 85 U/L (73-393); SGOT/AST 15 IU/L (3-35); SGPT/ALT 26 U/L (12-78); SODIUM 139 mmol/L (136-145); TOTAL PROTEIN 7.1 gm/dL (6.4-8.2)
[2021-04-25 16:50] LABS: BASOPHILS 1 % (0-1); OVALOCYTES FEW; PLATELET SUFFICIENCY NORMAL (NORMAL); POLYCHROMASIA SLIGHT; TOTAL CELLS COUNTED 100 #CELLS
== END 2021-04-25 19:22 | disposition home or self-care (01) ==
LOC: ED 14:28
PROVIDERS: Physician Assistant
DX: K59.00 Constipation, unspecified (principal); Z79.899 Other long term (current) drug therapy

== ENCOUNTER 2022-10-20 13:49 | Emergency (ER) | payer OTHER ==
[~2022-10-20] VITALS: Ht 175.2 cm; Wt 70.3 kg
[2022-10-20] MEDS ORDERED: PENICILLIN VK500 MG PO (14:10)
== END 2022-10-20 14:13 | disposition home or self-care (01) ==
LOC: ED 13:49
DX: K08.89 Other specified disorders of teeth and supporting structures (principal); F41.9 Anxiety disorder, unspecified; Z98.890 Other specified postprocedural states

== ENCOUNTER 2023-01-05 12:33 | Emergency (ER) | payer OTHER ==
[~2023-01-05] VITALS: Ht 175.2 cm; Wt 74.8 kg
[~2023-01-05 12:33] MED LIST changes: +PENICILLIN VK500 MG PO
== END 2023-01-05 16:00 | disposition left against medical advice (07) ==
LOC: ED 12:33
DX: R05.9 Cough, unspecified (principal); Z53.21 Procedure and treatment not carried out due to patient leaving prior to being seen by health care provider

== ENCOUNTER 2023-05-31 11:31 | Emergency (ER) | payer OTHER ==
[~2023-05-31] VITALS: Ht 175.2 cm; Wt 77.1 kg
[2023-05-31] MEDS ORDERED: Ketorolac Tromethamine 30 MG/ML VIAL IM ONE (12:10)
[2023-05-31] MEDS ORDERED: NAPROSYN500 MG PO (12:47)
== END 2023-05-31 13:03 | disposition home or self-care (01) ==
LOC: ED 11:31
DX: S43.102A Unspecified dislocation of left acromioclavicular joint, initial encounter (principal); F41.9 Anxiety disorder, unspecified; Z98.890 Other specified postprocedural states; X50.0XXA Overexertion from strenuous movement or load, initial encounter; Y93.89 Activity, other specified; Y92.89 Other specified places as the place of occurrence of the external cause; Y99.8 Other external cause status

== ENCOUNTER 2023-06-04 17:19 | Inpatient (IN) | payer OTHER ==
[~2023-06-04] VITALS: Ht 177.8 cm; Wt 65.8 kg
[~2023-06-04 17:19] MED LIST changes: +NAPROSYN500 MG PO
[2023-06-04 17:42] VITALS: BP 138/93
[2023-06-04] MEDS ORDERED: IOHEXOL 300 MG/ML 100 ML VIAL IV ONE (19:05)
[2023-06-04 19:06] LABS: BILIRUBIN Negative (Negative); BLOOD Trace-Lysed (Negative); CLARITY Clear (Clear); COLOR Yellow (Yellow); GLUCOSE Negative (Negative); KETONE Negative (Negative); LEUKO ESTERASE Negative (Negative); NITRITE Negative (Negative); PH 6.5 (4.5-8.0); UROBILINOGEN 0.2 E.U./dl (0.0-1.0)
[2023-06-04 19:07] LABS: BASO # 0.1 10*3/uL (0.0-0.1); BASO % 0.6 % (0.0-1.0); EOS # 0.2 10*3/uL (0.0-0.4); EOS % 1.6 % (1.0-4.0); HEMATOCRIT 45.4 % (42.0-52.0); LYMPH # 1.8 10*3/uL (1.3-4.4); LYMPH % 19.5 % (27.0-41.0); MEAN CELL VOLUME 91.5 fl (80.0-94.0); MEAN CORPUSCULAR HGB 29.2 pg (27.0-31.0); MEAN CORPUSCULAR HGB CONC 31.9 g/dl (33.0-37.0); MEAN PLATELET VOLUME 9.2 fl (9.6-12.3); MONO # 0.4 10*3/uL (0.1-1.0); MONO % 4.6 % (3.0-9.0); NEUT # 6.8 10*3/uL (2.3-7.9); NEUT % 73.5 % (47.0-73.0); PLATELET COUNT AUTOMATED 419 10*3/uL (130-400); RED BLOOD COUNT 4.96 10*6/uL (4.50-5.90); RED CELL DISTRI WIDTH 12.9 % (0-14.5); WHITE BLOOD COUNT 9.3 10*3/uL (4.8-10.8)
[2023-06-04 19:14] LABS: BACTERIA 1+; MUCOUS 2+
[2023-06-04 19:56] LABS: ALKALINE PHOSPHATASE 76 U/L (46-116); BUN 9 mg/dl (9-23); CHLORIDE 101 mmol/L (98-107); POTASSIUM 4.1 mmol/L (3.4-5.1); SGPT/ALT 16 U/L (5-49); TOTAL PROTEIN 6.9 gm/dL (6.0-8.0)
[2023-06-04 21:07] VITALS: BP 129/81
[2023-06-04] MEDS ORDERED: NAPROXEN500 MG PO (21:12)
[2023-06-04] MEDS ORDERED: LORAZEPAM1 MG PO (21:12)
[2023-06-04] MEDS ORDERED: Ketorolac Tromethamine 30 MG/ML VIAL IV ONE (22:00)
[2023-06-04] MEDS ORDERED: DIAZEPAM 10 MG/2 ML SYR IV ONE (23:10)
[2023-06-04] MEDS ORDERED: SODIUM CHLORIDE 0.9% 1,000 ML IV ONE (23:40)
[2023-06-05] MEDS ORDERED: Ondansetron Hydrochloride 4 MG/2 ML VIAL IV PRN (01:30)
[2023-06-05] MEDS ORDERED: SODIUM CHLORIDE 0.9% 1,000 ML IV ONE (01:30)
[2023-06-05 02:00] VITALS: BP 147/91
[2023-06-05] MEDS ORDERED: ACETAMINOPHEN 325 MG TAB PO ONE (02:30)
[2023-06-05 02:33] VITALS: BP 147/91
[2023-06-05] MEDS ORDERED: ACETAMINOPHEN 100 ML IV ONE ×2 (02:35→02:59)
[2023-06-05] MEDS ORDERED: DIAZEPAM 10 MG/2 ML SYR IV ONE ×3 (03:15→22:55)
[2023-06-05] MEDS ORDERED: Ketorolac Tromethamine 15 MG/ML VIAL IV PRN (06:00)
[2023-06-05 06:25] LABS: BASO # 0.1 10*3/uL (0.0-0.1); BASO % 0.6 % (0.0-1.0); EOS # 0.2 10*3/uL (0.0-0.4); EOS % 2.1 % (1.0-4.0); HEMATOCRIT 44.4 % (42.0-52.0); LYMPH # 1.4 10*3/uL (1.3-4.4); LYMPH % 16.7 % (27.0-41.0); MEAN CELL VOLUME 90.4 fl (80.0-94.0); MEAN CORPUSCULAR HGB 28.9 pg (27.0-31.0); MEAN PLATELET VOLUME 9.7 fl (9.6-12.3); MONO # 0.5 10*3/uL (0.1-1.0); MONO % 5.4 % (3.0-9.0); NEUT # 6.3 10*3/uL (2.3-7.9); NEUT % 74.8 % (47.0-73.0); PLATELET COUNT AUTOMATED 389 10*3/uL (130-400); RED BLOOD COUNT 4.91 10*6/uL (4.50-5.90); RED CELL DISTRI WIDTH 12.9 % (0-14.5); WHITE BLOOD COUNT 8.4 10*3/uL (4.8-10.8)
[2023-06-05 06:34] LABS: BUN 9 mg/dl (9-23); CHLORIDE 103 mmol/L (98-107); CHOLESTEROL 165 mg/dL (<200); LDL CHOLESTEROL 96 mg/dL (9-159); POTASSIUM 4.6 mmol/L (3.4-5.1); TRIGLYCERIDES 67 mg/dl (<150)
[2023-06-05 08:00] VITALS: BP 138/74
[2023-06-05] MEDS ORDERED: Enoxaparin Sodium 40 MG/0.4 ML SYR SC SCH (10:00)
[2023-06-05] MEDS ORDERED: DIATRIZOATE MEG/DIATRIZO. SOD 120 ML BOT ONE (11:07)
[2023-06-05 12:00] VITALS: BP 142/72
[2023-06-05] MEDS ORDERED: Peg Electrolyte Lavage Solut 4,000 ML BOT PO ONE (12:00)
[2023-06-05] MEDS ORDERED: DIATRIZOATE MEG/DIATRIZO. SOD 120 ML BOT R ONE (12:25)
[2023-06-05 16:00] VITALS: BP 131/70
[2023-06-05 21:00] VITALS: BP 130/65
[2023-06-06] VITALS (7 sets, daily range): BP systolic 109–153; BP diastolic 60–84
[2023-06-06] MEDS ORDERED: DIAZEPAM 10 MG/2 ML SYR IV ONE ×2 (03:05→07:50)
[2023-06-06 06:59] LABS: BASO % 0.4 % (0.0-1.0); EOS # 0.2 10*3/uL (0.0-0.4); EOS % 1.7 % (1.0-4.0); HEMATOCRIT 43.2 % (42.0-52.0); LYMPH # 1.2 10*3/uL (1.3-4.4); LYMPH % 12.9 % (27.0-41.0); MEAN CELL VOLUME 90.6 fl (80.0-94.0); MEAN CORPUSCULAR HGB 29.4 pg (27.0-31.0); MEAN CORPUSCULAR HGB CONC 32.4 g/dl (33.0-37.0); MEAN PLATELET VOLUME 9.7 fl (9.6-12.3); MONO # 0.5 10*3/uL (0.1-1.0); NEUT # 7.4 10*3/uL (2.3-7.9); NEUT % 79.7 % (47.0-73.0); PLATELET COUNT AUTOMATED 384 10*3/uL (130-400); RED BLOOD COUNT 4.77 10*6/uL (4.50-5.90); WHITE BLOOD COUNT 9.2 10*3/uL (4.8-10.8)
[2023-06-06 07:13] LABS: BUN 10 mg/dl (9-23); CHLORIDE 105 mmol/L (98-107)
[2023-06-06] MEDS ORDERED: SODIUM CHLORIDE 0.9% 1,000 ML IV ONE ×2 (13:10→14:03)
[2023-06-06] MEDS ORDERED: DIAZEPAM 10 MG/2 ML SYR IV PRN (13:10)
[2023-06-06] MEDS ORDERED: Lidocaine Hydrochloride 2% 10 ML AMP IM ONE (15:49)
[2023-06-06] MEDS ORDERED: PROPOFOL 200 MG/20 ML VIAL IV ONE (15:49)
[2023-06-06] MEDS ORDERED: Midazolam Hydrochloride 2 MG/2 ML VIAL IV ONE (15:49)
== END 2023-06-06 16:45 | disposition home or self-care (01) | DRG 247 ==
LOC: ED 17:19 → EDHOLD 06-05 00:27 → 4E 06-05 00:27
PROVIDERS: Family Medicine; Student in an Organized Health Care Education/Training Program; ADMIT Internal Medicine; ATTEND Internal Medicine
PROC: 0D9670Z Drainage of Stomach with Drainage Device, Via Natural or Artificial Opening (ICD-10-PCS; 2023-06-05)
PROC: 0DJD8ZZ Inspection of Lower Intestinal Tract, Via Natural or Artificial Opening Endoscopic (ICD-10-PCS; principal; 2023-06-06)
DX: K56.7 Ileus, unspecified (principal); E87.1 Hypo-osmolality and hyponatremia; K59.00 Constipation, unspecified; Z66 Do not resuscitate; F41.9 Anxiety disorder, unspecified; E78.5 Hyperlipidemia, unspecified; C18.7 Malignant neoplasm of sigmoid colon; R82.71 Bacteriuria; D75.839 Thrombocytosis, unspecified; R73.9 Hyperglycemia, unspecified; R31.9 Hematuria, unspecified; D50.0 Iron deficiency anemia secondary to blood loss (chronic); E87.5 Hyperkalemia; E55.9 Vitamin D deficiency, unspecified; K57.30 Diverticulosis of large intestine without perforation or abscess without bleeding; Z82.3 Family history of stroke; Z83.3 Family history of diabetes mellitus

== ENCOUNTER → 2024-01-02 | Outpatient (CLI) | payer OTHER ==
[~2024-01-02] MED LIST changes: +IOHEXOL 300 MG/ML 100 ML VIAL IV ONE; +LORAZEPAM1 MG PO; +NAPROXEN500 MG PO
== END | disposition home or self-care (01) ==
LOC: CT 09:42
PROVIDERS: ATTEND Internal Medicine Hematology & Oncology
DX: K76.0 Fatty (change of) liver, not elsewhere classified (principal); N40.0 Benign prostatic hyperplasia without lower urinary tract symptoms; C18.7 Malignant neoplasm of sigmoid colon; D50.0 Iron deficiency anemia secondary to blood loss (chronic); J98.11 Atelectasis

== ENCOUNTER → 2024-05-20 | Outpatient (CLI) | payer OTHER ==
[~2024-05-20] MED LIST changes: +IOHEXOL 300 MG/ML 100 ML VIAL ONE
== END | disposition home or self-care (01) ==
LOC: CT 10:37
PROVIDERS: ATTEND Internal Medicine Hematology & Oncology
DX: C18.7 Malignant neoplasm of sigmoid colon (principal); D50.0 Iron deficiency anemia secondary to blood loss (chronic); K76.89 Other specified diseases of liver

== ENCOUNTER 2024-05-25 19:20 | Emergency (ER) | payer OTHER ==
[~2024-05-25] VITALS: Ht 175.3 cm; Wt 78.0 kg
[~2024-05-25 19:20] MED LIST changes: -IOHEXOL 300 MG/ML 100 ML VIAL IV ONE; -IOHEXOL 300 MG/ML 100 ML VIAL ONE
== END 2024-05-25 20:47 | disposition home or self-care (01) ==
LOC: ED 19:20
DX: Z45.2 Encounter for adjustment and management of vascular access device (principal); Z98.890 Other specified postprocedural states; Z79.899 Other long term (current) drug therapy

== ENCOUNTER 2024-07-04 17:45 | Emergency (ER) | payer OTHER ==
[~2024-07-04] VITALS: Ht 175.2 cm; Wt 74.8 kg
[2024-07-04] MEDS ORDERED: Tetracaine Hydrochloride 0.5% 4 ML BOT OPH ONE (18:30)
[2024-07-04] MEDS ORDERED: LISSAMINE GREEN 1.5 MG STRIP OP ONE (18:30)
[2024-07-04] MEDS ORDERED: Ketorolac Tromethamine 60 MG/2 ML VIAL IM ONE (18:55)
[2024-07-04] MEDS ORDERED: Ciprofloxacin Hydrochloride 0.3% OPHTHLAMIC BOTTLE OPH ONE (18:55)
[2024-07-04] MEDS ORDERED: KETOROLAC TROMETH. 0.5% OPTH SOL OPH SCH (22:00)
== END 2024-07-04 20:12 | disposition home or self-care (01) ==
LOC: ED 17:45
DX: S05.01XA Injury of conjunctiva and corneal abrasion without foreign body, right eye, initial encounter (principal); F41.9 Anxiety disorder, unspecified; Z79.899 Other long term (current) drug therapy; Z90.49 Acquired absence of other specified parts of digestive tract; Z98.890 Other specified postprocedural states; X58.XXXA Exposure to other specified factors, initial encounter; Y93.89 Activity, other specified; Y92.89 Other specified places as the place of occurrence of the external cause; Y99.8 Other external cause status

== ENCOUNTER 2024-08-04 12:52 | Emergency (ER) | payer OTHER ==
[~2024-08-04] VITALS: Wt 74.8 kg
== END 2024-08-04 15:16 | disposition home or self-care (01) ==
LOC: ED 12:52
DX: Z45.2 Encounter for adjustment and management of vascular access device (principal); Z79.899 Other long term (current) drug therapy; Z98.890 Other specified postprocedural states

== ENCOUNTER → 2024-08-24 | Outpatient (CLI) | payer OTHER ==
[~2024-08-24] MED LIST changes: +IOHEXOL 300 MG/ML 100 ML VIAL IV ONE
== END | disposition home or self-care (01) ==
LOC: CT 04:11
PROVIDERS: ATTEND Internal Medicine Hematology & Oncology
DX: C18.7 Malignant neoplasm of sigmoid colon (principal); N28.1 Cyst of kidney, acquired; K42.9 Umbilical hernia without obstruction or gangrene; K63.89 Other specified diseases of intestine; K76.9 Liver disease, unspecified; J98.4 Other disorders of lung; D50.0 Iron deficiency anemia secondary to blood loss (chronic)